=== PATIENT | male | born 1980 | race Caucasian/White ===

== ENCOUNTER 2020-07-29 12:39 | Outpatient (REF) | payer BC, SELFPAY ==
--- NOTE | 2020-07-29 12:48 | MR_ITS ---
EXAMINATION: UNENHANCED AND IV CONTRAST ENHANCED MRI OF THE ORBITS; UNENHANCED AND IV CONTRAST ENHANCED MRI OF THE BRAIN. CLINICAL INFORMATION: Optic neuritis left-sided Rule out multiple sclerosis. COMPARISON: None TECHNIQUE: Routine unenhanced IV contrast enhanced MRI of the orbits; routine unenhanced and IV contrast enhanced MRI of the brain. Additional sagittal FLAIR images the brain are obtained to assess for demyelinating disease. Intravenous contrast: Gadavist: 7.5 mm. FINDINGS: MRI brain: No intracranial hemorrhage, tumors or infarcts are noted. The ventricles and sulci are normal in size and configuration. No periventricular lesions or lesions of the middle cerebellar peduncles are identified. Normal flow-related signal intensity is identified in the major intracranial vessels and dural sinuses. The cervical medullary junction cerebellar tonsils are normal in configuration. No marrow signal abnormalities are identified. Sagittal FLAIR images demonstrate no periventricular lesions. MRI orbits: Optic nerves and optic chiasm are normal in appearance. The optic nerve sheaths demonstrate no abnormalities. The orbits and globes are normal in appearance as are the extraocular muscles. No abnormal enhancement of the optic nerves is identified. The lacrimal glands are normal in appearance. IMPRESSION: Unenhanced and IV contrast-enhanced demyelinating protocol MRI of the brain: Normal. No evidence of demyelinating disease. Unenhanced and IV contrast enhanced MRI of the orbits: Normal. Normal appearance of the optic nerves without evidence of optic nerve demyelinating disease.
== END 2020-07-29 12:40 | disposition home or self-care (01) ==
LOC: HO.MRI 12:39
PROVIDERS: Visit Provider Psychiatry & Neurology Neurology
DX: H46.9 Unspecified optic neuritis (principal); G37.9 Demyelinating disease of central nervous system, unspecified
CPT/HCPCS: 70543; 70553